=== PATIENT | female | born 1995 | race Caucasian/White ===

== ENCOUNTER 2017-05-15 21:47 | Emergency (ER) | payer OTHER ==
[~2017-05-15] VITALS: Ht 165.1 cm; Wt 74.3 kg
[2017-05-15 21:54] VITALS: TEMP 36.5; Ht 165.1 cm; Wt 74.3 kg
[2017-05-15] MEDS ORDERED: PSEUDOEPHEDRINE HCL 30 MG TAB PO STA (22:29)
[2017-05-15] MEDS ORDERED: AMOXICIL/CLAVU 875MG HOME PACK PO STA (23:12)
[2017-05-15] MEDS ORDERED: TRAMADOL HCL 50 MG HOME PACK PO STA (23:12)
[2017-05-15] MEDS ORDERED: METH4PAK PO (23:15)
[2017-05-15] MEDS ORDERED: TRAM-453 PO (23:15)
[2017-05-15] MEDS ORDERED: AMOX875T PO (23:15)
--- NOTE | 2017-05-15 23:18 | EMERGENCY ROOM VISIT NOTE ---
History First contact with patient: 22:04 Chief Complaint: EAR PAIN Stated Complaint: PROBLESM WITH EUSTACHIAN TUBE/EARS History of Present Illness The patient is a 21 year old female who presents to the Emergency Room via private vehicle accompanied by male with complaints of "problem with eustachian tubes". The patient states that she has been dealing with ongoing eustachian tube dysfunction since February. She was seen at her local [facility] and was given Flonase. She notes that it has been progressing, and now while traveling in a vehicle from [place] she notes the pain worsened. She rates the overall pain as a 9/10. She notes that the pain is bilateral. Review of Systems A complete 10-point Review of Systems was discussed with the patient, with pertinent positives and negatives listed in the History of Present Illness. All remaining Review of Systems questions can be considered negative unless otherwise specified. Past Medical/Surgical History No pertinent Family History No pertinent Social History Smoking Status: Never Smoker Pt. attends school in [place] Current/Historical Medications Scheduled Amoxicillin & Pot Clavulanate (Augmentin 875-125 mg), 1 TAB PO BID Methylprednisolone (Medrol Dosepak), 0 PO DAILY Scheduled PRN Tramadol Hcl (Ultram), 1 TAB PO Q8 PRN for Pain Physical Exam Vital Signs Date Time Temp Pulse Resp B/P (MAP) Pulse Ox O2 Delivery O2 Flow Rate FiO2 05/15/17 23:24 100 18 135/80 100 05/15/17 21:54 36.5 95 18 109/71 99 Room Air Physical Exam VITAL SIGNS - Vital signs and nursing notes were reviewed. Stable. GENERAL - 21-year-old female appearing her stated age who is in no acute distress. Communicates well with provider and answers questions appropriately. SKIN - Without rashes. No petechial rashes. HEAD - NC/AT. EYES - PERRL with EOMI bilaterally. Sclera anicteric. EARS - No deformities of external structures noted on gross examination bilaterally. External auditory canals without discharge or otorrhea. TM of the right ear is bulging, and has evidence of fluid level behind it that is yellowish in nature. No erythema. Left ear reveals similar fluid level but no retraction or bulging of the TM. TM is intact. MOUTH/OROPHARYNX - Without perioral cyanosis. Buccal mucosa pink and moist and without leukoplakia. Tongue midline with equal elevation of palate bilaterally. No tonsillar hypertrophy, erythema, or exudates noted. Fair dentition noted. Medical Decision & Procedures Medications Administered Medications (Trade) Dose Ordered Sig/Stephanie Route Start Time Stop Time Status Last Admin Dose Admin Pseudoephedrine HCl (Sudafed Tab) 60 mg Q6H STAT PO 05/15/17 22:29 2 22:30 DC 05/15/17 22:49 60 MG Amoxicillin/ Clavulanate Potassium (Augmentin 875MG Home Pack) 1 homepack UD STAT PO 05/15/17 23:12 05/15/17 23:13 DC 05/15/17 23:19 1 HOMEPACK Tramadol HCl (Ultram Home Pack) 1 homepack UD STAT PO 05/15/17 23:12 05/15/17 23:13 DC 05/15/17 23:19 [facility] Patient was seen and evaluated as above. She presents to us today with eustachian tube dysfunction. She is nontoxic on exam. She was given a Sudafed tablet here. She was given methylprednisolone, Augmentin and tramadol for her symptoms. No red flags the [place] drug monitoring system. She is also to take Sudafed [id number]. She is to follow up at her local [facility] with potential referral to ENT. She is to return for worsening. She was educated upon management, educated upon worrisome symptoms in which to return, had questions answered prior to discharge, and was discharged home in good condition. Per patient request I did speak with the patient and mother via phone while on speaker phone regarding the patient's case. In evaluation treatment this patient the following differential diagnoses entertained: Otitis media, otitis externa, serous otitis, rupture, among others. Impression Primary Impression: Eustachian tube dysfunction Additional Impression: Acute serous otitis media of both ears without rupture Departure Information Dispostion Home / Self-Care Condition GOOD Prescriptions Amoxicillin & Pot Clavulanate (Augmentin 875-125 mg) 1 Tab Tab 1 TAB PO BID for 10 Days, #20 TAB Prov: Je Duarte PA-C 05/15/17 Methylprednisolone (MEDROL DOSEPAK) 4 Mg Sharan 0 PO DAILY, #1 PKT Prov: Je Duarte PA-C 05/15/17 Tramadol Hcl (ULTRAM) 50 Mg Tab 1 TAB PO Q8 Y for Pain, #9 TAB Prov: Je DuarteWoody, STEPHANIE 05/15/17 Referrals No Doctor, Assigned (PCP) Levar Odonnell MD Patient Instructions [facility] Additional Instructions You have been treated in the Emergency Department for an Inner Ear fluid build up (serous Otitis Media). You have received pain medicine in the emergency department which impairs your ability to operate a vehicle. It is illegal for you to drive after receiving these medicines. You were prescribed Augmentin to be taken every 12 hours. This is an antibiotic. All antibiotics have the potential to cause diarrhea. Stop this medication and contact a medical provider if you were to develop any significant adverse side effects including: wheezing, shortness of breath, passing out, vomiting, or a diffuse rash. Always take antibiotics as directed and COMPLETE the ENTIRE course regardless of the improvement of your symptoms. You have been prescribed a Medrol Dosepak. Take this medication as prescribed. You should take the COMPLETE 6-day course of this medication. This is an anti- inflammatory medicine that will help to minimize your symptoms. pseudophed over the counter for a few days to help with congestion For pain and fever control, you can use the following [id number] medicines (if >12 yo): - Regular strength (325mg/tab) Tylenol (acetaminophen) 2 tabs every 4-6 hours as needed. Do not exceed 12 tablets in a 24 hour period. Avoid taking more than 3 grams (3000 mg) of Tylenol per day. This includes any other sources of acetaminophen you may take on a regular basis. - Regular strength (200 mg/tab) Advil (ibuprofen) 1-2 tabs every 4-6 hours as needed. Do not exceed a dose of 3200 mg per day. You should follow-up with your Primary Care Provider from today's Emergency Department visit. Return to the emergency department if you develop the following symptoms despite treatment course outlined above: headache, fever, intractable pain, increased redness, swelling, or purulent discharge. Problem Qualifiers
[2017-05-15 23:24] VITALS: BP 135/80; PULSE 100; O2SAT 100
== END 2017-05-15 23:25 | disposition home or self-care (01) ==
LOC: C.EDB 21:50 → C.EDC 23:25
DX: H69.93 Unspecified Eustachian tube disorder, bilateral (principal); H65.193 Other acute nonsuppurative otitis media, bilateral